=== PATIENT | male | born 1980 | race African-American/Black ===

== ENCOUNTER 2019-07-17 01:22 | Inpatient (IN) | payer MEDICAID ==
[~2019-07-17] VITALS: Ht 188 cm; Wt 64.9 kg
[2019-07-17 02:02] LABS: BASOPHILS % (AUTO) 1.2 % (0.0-2.0); EOSINOPHILS % (AUTO) 1.1 % (1.0-6.0); HEMATOCRIT 44.2 % (41-53); HEMOGLOBIN 14.6 g/dL (13.5-17.5); LYMPHOCYTES # (AUTO) 3.3 K/uL (1.0-4.8); LYMPHOCYTES % (AUTO) 29.1 % (22.0-44.0); MEAN CORPUSCULAR HGB CONC 33.1 G/dL (31.0-37.0); MEAN CORPUSCULAR VOLUME 94 fL (80-100); MONOCYTES # (AUTO) 0.9 K/uL (0.1-1.0); MONOCYTES % (AUTO) 8.2 % (2.0-9.0); NEUTROPHILS # (AUTO) 6.9 K/uL (1.8-7.7); NEUTROPHILS % (AUTO) 60.4 % (40.0-70.0); PLATELET COUNT (AUTO) 285 K/uL (150-450); RED BLOOD CELL COUNT(AUTO) 4.72 MIL/uL (4.50-5.90); RED CELL DISTRIBUTION WIDTH 13.3 % (11.5-14.5)
[2019-07-17 02:12] LABS: ANION GAP 8 mmol/L (8-16); CALCIUM, TOTAL 9.2 mg/dL (8.8-10.5); CARBON DIOXIDE 29 mmol/L (22-29); CHLORIDE 102 mmol/L (98-107); CREATININE 1.41 mg/dL (0.60-1.30); GLOMERULAR FILTR. RATE CALC 56 mL/min (>60); GLUCOSE,RANDOM 103 mg/dL (70-110); POTASSIUM 4.6 mmol/L (3.5-5.1); SODIUM SERUM 139 mmol/L (136-145); UREA NITROGEN, BLOOD 26 mg/dL (7-18)
[2019-07-17 02:17] LABS: ALANINE AMINOTRANSFERASE 17 U/L (12-78); ALKALINE PHOSPHATASE 85 U/L (46-116); ASPARTATE AMINOTRANSFERASE 14 U/L (15-37); BILIRUBIN,TOTAL 0.3 mg/dL (0.1-1.0); TOTAL PROTEIN, SERUM 7.4 g/dL (6.4-8.2)
[2019-07-17] MEDS ORDERED: ZOLPIDEM TARTRATE 10 MG TABLET PO PRN (04:00)
[2019-07-17] MEDS ORDERED: LORazepam 2 MG TABLET PO PRN (04:00)
[2019-07-17] MEDS ORDERED: HALOPERIDOL 5 MG TABLET PO PRN (04:00)
[2019-07-17] MEDS ORDERED: SODIUM CHLORIDE 0.9% 1,000 ML IV ONE (05:15)
[2019-07-17 10:49] VITALS: BP 119/81
[2019-07-17] MEDS ORDERED: INFLUENZA VIRUS VACCINE QVS 2019-20 (3YR+)/PF 60 MCG/0.5 ML SYRINGE IM ONE (12:00)
[2019-07-17] MEDS: NICOTINE 21 MG/24 HOUR PATCH TD PRN (15:12)
[2019-07-17 16:10] VITALS: BP 114/81
[2019-07-18 06:43] VITALS: BP 102/64
[2019-07-18 08:36] VITALS: BP 120/79
[2019-07-18] MEDS: ARIPiprazole 10 MG TABLET PO SCH (16:00)
[2019-07-18 17:07] VITALS: BP 112/61
[2019-07-18] MEDS: NICOTINE 21 MG/24 HOUR PATCH TD PRN (20:41)
[2019-07-19 04:33] VITALS: BP 118/78
[2019-07-19 08:30] VITALS: BP 97/60
[2019-07-19] MEDS: ARIPiprazole 10 MG TABLET PO SCH (09:00)
[2019-07-19 16:12] VITALS: BP 100/63
[2019-07-20 07:03] VITALS: BP 115/75
[2019-07-20 07:47] LABS: CHOL/HDL RATIO 2.3 (4.2-7.3)
[2019-07-20 08:15] VITALS: BP 105/64
[2019-07-20] MEDS: ARIPiprazole 10 MG TABLET PO SCH (08:23)
[2019-07-20] MEDS: NICOTINE 21 MG/24 HOUR PATCH TD PRN (12:21)
[2019-07-20 16:09] VITALS: BP 107/67
[2019-07-21 05:13] VITALS: BP 118/76
[2019-07-21 08:30] VITALS: BP 129/74
[2019-07-21] MEDS: ARIPiprazole 10 MG TABLET PO SCH (09:00)
[2019-07-21 16:00] VITALS: BP 115/65
[2019-07-21] MEDS: NICOTINE 21 MG/24 HOUR PATCH TD PRN (16:18)
[2019-07-22 05:46] VITALS: BP 120/80
[2019-07-22 08:00] VITALS: BP 104/65
[2019-07-22] MEDS: ARIPiprazole 10 MG TABLET PO SCH (09:00)
[2019-07-22] MEDS ORDERED: ARIP10TA8 PO (10:07)
== END 2019-07-22 13:10 | disposition home or self-care (01) | DRG 750 ==
LOC: EMS 01:25 → B3A 07:35
DX: F20.0 Paranoid schizophrenia (principal); N17.9 Acute kidney failure, unspecified; R45.850 Homicidal ideations; Z59.0 Homelessness; R00.0 Tachycardia, unspecified; F19.10 Other psychoactive substance abuse, uncomplicated; F10.10 Alcohol abuse, uncomplicated; F60.81 Narcissistic personality disorder; D72.829 Elevated white blood cell count, unspecified; Z28.21 Immunization not carried out because of patient refusal; Z79.899 Other long term (current) drug therapy
CPT/HCPCS: 90686; G0480